=== PATIENT | male | born 1990 | race Caucasian/White ===

== ENCOUNTER 2022-09-16 18:42 | Emergency (ER) | payer OTHER, SELFPAY ==
[2022-09-16 18:56] VITALS: BP 140/85; PULSE 69; RESP 14; TEMP 36.9; O2SAT 98
[2022-09-16] MEDS: methylPREDNISolone SOD SUCC 125 MG VIAL IM (19:21)
--- NOTE | 2022-09-16 19:32 | ED.GENADULT ---
HPI - General Adult General Chief complaint: Skin/Abscess/Foreign Body Stated complaint: Rash Source: patient Mode of arrival: ambulatory Limitations: no limitations History of Present Illness HPI narrative: Patient presents for evaluation of rash. He indicates he noticed pruritic rash to the right side of his abdomen/chest wall yesterday around 1200. He states since that time rash has progressed. In the past hour he has noted worsening symptoms and the rash encompasses his torso and extremities x 4. No difficulty breathing or swallowing. No new lotions, soaps, detergents or topical products. He has not been exposed to poison alba/sumac/oak. No hx of similar symptoms. No known allergies. No additional complaints or concerns. Related Data Allergies Allergy/AdvReac Type Severity Reaction Status Date / Time No Known Allergies Allergy Verified 09/16/22 19:04 Review of Systems Review of Systems: CONSTITUTIONAL: Denies fever, chills, or sweats. EYES: Denies visual changes, redness, or discharge. ENT: Denies rhinorrhea, congestion, sore throat, or otalgia. CARDIOVASCULAR: Denies chest pain, palpitations, or edema. RESPIRATORY: Denies cough or dyspnea. GASTROINTESTINAL: Denies abdominal pain, nausea, vomiting, or diarrhea. GENITOURINARY: Denies dysuria or hematuria. SKIN:Reports pruritic rash to torso and extremities x 4. MUSCULOSKELETAL: Denies back pain, joint pain, or myalgia. NEUROLOGIC: Denies headache, numbness, dizziness, or weakness. PSYCHIATRIC: Denies anxiety or depression. PMFSH Past Medical History Medical History No pertinent past medical history Surgical History Surgical History No pertinent past surgical history Family History Family History Mother Family history non-contributory Social History Social History Smoking status: Current some day smoker Substance use: never Gender identity (if verbalized by the patient): Male Spiritual care concerns: No Exam Narrative: GENERAL: Well-appearing, well-nourished, and in no acute distress. HEAD: Normocephalic, atraumatic. EYES: PERRLA and EOMI. ENT: Nares clear, no rhinorrhea or epistaxis. Mucous membranes moist. Oropharynx without tonsillar hypertrophy exudate or other lesions. Bilateral TMs pearly courtney nonbulging NECK: Supple. No adenopathy or masses. No carotid bruits or JVD CHEST: Clear to auscultation. No respiratory distress. No wheezes rales or rhonchi HEART: Regular rate and rhythm. No murmur heard. Normal peripheral pulses. ABDOMEN: Soft, nontender, nondistended, normal active bowel sounds. EXTREMITIES: Normal range of motion. No edema. SKIN: Erythematous slightly raised rash in a patchy distribution to torso and extremities x4. NEURO: No focal deficits. Alert and oriented x3. PSYCH: Normal mood and affect. Course Course Emergency Course: This is a 32-year-old male who presented for evaluation of a rash to his torso and extremities x4. Exam is consistent with urticaria of unknown origin. Given 125 mg of Solu-Medrol while here. Will discharge with 12 day course of steroid taper due to severity of symptoms. He does not have any evidence of airway compromise. Follow-up outpatient for further evaluation and treatment include a year for difficulty breathing or swelling. Patient in agreement plan of care. Level of Care: Express Care Visit Vital Signs Vital signs: Vital Signs Temperature 36.9 C 09/16/22 18:56 Pulse Rate 69 09/16/22 18:56 Respiratory Rate 14 09/16/22 18:56 Blood Pressure 140/85 09/16/22 18:56 Pulse Oximetry 98 09/16/22 18:56 Oxygen Delivery Room Air 09/16/22 18:56 Temperature 36.9 C 09/16/22 18:56 Pulse Rate 69 09/16/22 18:56 Respiratory Rate 14 1
== END 2022-09-16 19:39 | disposition home or self-care (01) ==
PROVIDERS: Emergency Provider Nurse Practitioner
DX: L50.9 Urticaria, unspecified (principal); F17.200 Nicotine dependence, unspecified, uncomplicated
CPT/HCPCS: 96372; 99213; G0463; J2930